=== PATIENT | male | born 1995 | race Caucasian/White ===

== ENCOUNTER 2020-11-19 12:18 | Emergency (ER) | payer OTHER ==
[2020-11-19] MEDS ORDERED: Ibuprofen 200 MG TAB ONE (13:14)
[2020-11-19] MEDS ORDERED: Acetaminophen 500 MG TAB ONE (13:14)
[2020-11-19] MEDS ORDERED: Ondansetron ODT 4 MG TAB ONE (13:16)
== END 2020-11-19 13:38 | disposition home or self-care (01) ==
LOC: ERS 12:18
DX: U07.1 COVID-19 (principal)
CPT/HCPCS: 99283; Q0162